=== PATIENT | female | born 1945 | race Caucasian/White ===

== ENCOUNTER 2017-11-04 07:30 | Inpatient (IN) ==
[2017-11-04] MEDS ORDERED: *HR* Heparin 5,000 UNIT/ML VIAL IVP PRN ×2 (09:00)
[2017-11-04] MEDS ORDERED: Aspirin 325 MG TABLET PO SCH ×2 (09:00→10:30)
--- NOTE | 2017-11-04 09:08 | Internal Med History&Physical ---
Date of Encounter: 11/04/17 Time of Encounter: 09:06 Assessment and Plan (1) NSTEMI (non-ST elevated myocardial infarction) Current visit: Yes Status: Acute troponin is 6. Patient is on full dose heparin drip. Continue aspirin and beta blockers. She is chest pain-free currently. Will discuss with cardiology service for possible coronary angiography (2) Constipation Current visit: Yes Status: Acute Patient has been constipated for the past 2 weeks. She had a large bowel movement yesterday. She notices improvement in her abdominal discomfort. no more nausea and vomiting. Will give the patient Colace 100 milligrams twice daily. Qualifiers: Qualified Code(s): K59.00 - Constipation, unspecified Internal Medicine - H&P: HPI Chief complaint: abdominal and chest pain History of present illness: Ms. Rivera is a 71 year old female who presented to the emergency room with the main complain of abdominal pain. Yesterday evening patient started having diffuse crampy abdominal pain associated with nausea and nonbloody nonbilious emesis. Patient mentioned that she had not had a bowel movement in 2 weeks. Shortly after this complain she started experiencing retrosternal chest pain that was initially intermittent but then became constant. Workup at outside facility shoulder a 2nd component of 6 after an initial normal troponin. Patient is currently chest pain free during my interview. CTA chest abdomen and pelvis at outside facility was unremarkable. Internal Medicine - H&P: Meds 3 Allergy/AdvReac Type Severity Reaction Status Date / Time Hydromorphone [From Dilaudid] AdvReac Hallucinati Verified 06/21/16 09:20 ng All Systems PM: A 10-system review of systems was performed and is negative for pertinent findings except as documented above in the HPI. Review of systems: 10 point review of systems is negative except for HPI - Constitutional Vitals: Temp Pulse Resp BP Pulse Ox 98.5 F 91 19 122/82 91 11/04/17 08:20 11/04/17 08:20 11/04/17 08:20 11/04/17 08:20 11/04/17 08:20 Exam: Gen.: patient is alert oriented times 3 not in distress. Cardiac: normal S1 S2 no additional sounds are murmurs. Chest: clear to auscultation. Abdomen: soft, slight tenderness to deep palpation. Lower extremity no swelling mucous membranes: moist
[2017-11-04 09:29] LABS: Hematocrit 42.9 % (35.3-44.9); Mean Corpuscular HGB Conc 32.6 g/dL (31.6-35.5); Mean Corpuscular Hemoglobin 31.5 pg (28.0-33.3); Mean Corpuscular Volume 96.4 fL (83.0-100.0); Mean Platelet Volume 11.4 fL (9.4-12.4); Platelet Count 182 K/mcL (140-400); Red Blood Count 4.45 M/mcL (3.82-4.97); Red Cell Distribution Width 12.2 % (11.5-14.5)
--- NOTE | 2017-11-04 09:34 | Cardiology Consult Note ---
Date of Encounter: 11/04/17 Time of Encounter: 09:30 Assessment and Plan (1) NSTEMI (non-ST elevated myocardial infarction) Current Visit: Yes Status: Acute Aspirin, Heparin. Load with Brilinta 180mg, BB, high intensity statin. No murmur or pulmonary edema on exam or current of injury on EKG. Continue medical therapy with plan for [facility] tomorrow morning. A/R/B of LHC discussed including 1% chance of FL//CVA/CABG/bleeding/ALEJANDRO, she is aware and agreeable with proceeding. Symptoms controlled - plan for tomorrow. 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 All questions were answered. Thank you for involving us in the care of your patient. Please call with any questions. History of Present Illness Consult date: 11/04/17 Consult reason: NSTEMI Chief complaint: constipation and chest pressure History of present illness: Ms. Rivera is a 71 year old female with no previous cardiac history presents with 2 week history of constipation at [facility], then while in ED developed severe chest pressure that has been relieved with aspirin, NTG SL, and heparin drip. At the time of worst discomfort, she had diaphoresis and dyspnea. She denies syncope. Medications and Allergies 3 Allergy/AdvReac Type Severity Reaction Status Date / Time Hydromorphone [From Dilaudid] AdvReac Hallucinati Verified 06/21/16 09:20 ng All Systems Review: A 10-system review of systems was performed and is negative for pertinent findings except as documented above in the HPI. - Constitutional Constitutional: no chills, no fever(s) - EENT Eyes: no blurred vision, no loss of vision Nose, mouth and throat: no bleeding gums, no epistaxis - Cardiovascular Cardiovascular: chest pain at rest, no dyspnea on exertion, no irregular heart rhythm - Respiratory Respiratory: no hemoptysis, no wheezing - Gastrointestinal Gastrointestinal: constipation, no hematemesis, no hematochezia - Genitourinary Genitourinary: no dysuria, no hematuria - Musculoskeletal Musculoskeletal: no arthralgias, no myalgias - Integumentary Integumentary: no erythema, no rash - Neurological Neurological: no syncope, no tingling - Psychiatric Psychiatric: no hallucinations, no panic attacks - Hematological/Lymphatic Hematologic/Lymphatic: no easy bleeding, no easy bruising Physical Examination Vital Signs, Last 4 Hours Temp Pulse Resp BP Pulse Ox 11/04/17 08:20 98.5 F 91 19 122/82 91 General: Conversant HEENT: Atraumatic Neck: No JVD Cardiac: Reg Rate and Rhythm Lungs: Normal Breath Sounds Neuro: Alert and responsive Abdomen: Soft Skin: No rashes noted on visualized skin Musculoskeletal: No Chest Wall Tenderness Extremities: No Edema Results 11/04/17 09:07 11/04/17 09:07 - EKG Interpretation EKG results cardiology: personally reviewed, sinus rhythm (Anterior FL, probably old. No current of injury) Consult Discharge Plan - Plan Referrals: Cha Delgado, SERVICE OPERATIONS MANAGER [Primary Care Provider] -
[2017-11-04 09:42] LABS: BUN/Creatinine Ratio 19 (6-26); Blood Urea Nitrogen 20 mg/dL (8-23); Calcium 9.2 mg/dL (8.6-10.3); Carbon Dioxide 25 mEq/L (23-29); Chloride 103 mEq/L (98-107); Glucose 157 mg/dL (70-105); INR 1.1; Osmolality,Calculated 288 (280-300); Potassium 3.7 mEq/L (3.5-5.1); Prothrombin Time 11.6 Seconds (9.4-12.1); Sodium 136 mEq/L (136-145); eGFR For African Americans > 60 (> 60); eGFR For Non-African Americans 52 (> 60)
[2017-11-04] MEDS: Heparin 25,000 UNIT/500 ML D5W 25,000 UNIT/500 ML BAG IVC SCH (10:02)
[2017-11-04] MEDS ORDERED: *HR* Ticagrelor 90 MG TABLET PO ONE (10:20)
[2017-11-04] MEDS ORDERED: Nitroglycerin 1 INCH/GM PACKET TP ONE (10:21)
[2017-11-04 10:30] LABS: Activated Partial Thrombo Time 142.7 Seconds (26.0-36.0)
[2017-11-04 10:49] LABS: Heparin anti-factor XA UFH 0.57 IU/mL (0.30-0.70)
[2017-11-04] MEDS ORDERED: Furosemide 20 MG TABLET PO PRN (16:06)
[2017-11-04] MEDS: *HR* Ticagrelor 90 MG TABLET PO SCH (20:16)
[2017-11-04] MEDS ORDERED: Acetaminophen 325 MG TABLET PO PRN (20:50)
[2017-11-05 00:47] LABS: Basophils % 0.1 %; Eosinophils % 0.3 %; Hematocrit 36.9 % (35.3-44.9); Hemoglobin 12.4 g/dL (11.5-15.4); Immature Granulocytes % 0.5 % (0-4); Lymphocytes # 0.8 K/mcL (0.6-4.6); Lymphocytes % 6.4 %; Mean Corpuscular HGB Conc 33.6 g/dL (31.6-35.5); Mean Corpuscular Hemoglobin 31.6 pg (28.0-33.3); Mean Corpuscular Volume 93.9 fL (83.0-100.0); Monocytes # 0.9 K/mcL (0.0-1.3); Monocytes % 7.1 %; Neutrophils # 10.6 K/mcL (1.6-8.9); Platelet Count 166 K/mcL (140-400); Red Blood Count 3.93 M/mcL (3.82-4.97); Red Cell Distribution Width 12.5 % (11.5-14.5); Segmented Neutrophils % 85.6 %
[2017-11-05 00:55] LABS: Hemoglobin A1C 4.8 %
[2017-11-05 01:01] LABS: BUN/Creatinine Ratio 18 (6-26); Blood Urea Nitrogen 18 mg/dL (8-23); Calcium 8.8 mg/dL (8.6-10.3); Carbon Dioxide 27 mEq/L (23-29); Chloride 104 mEq/L (98-107); Glucose 130 mg/dL (70-105); Magnesium 2.2 mg/dL (1.6-2.6); Osmolality,Calculated 284 (280-300); Potassium 3.7 mEq/L (3.5-5.1); Sodium 135 mEq/L (136-145); eGFR For African Americans > 60 (> 60); eGFR For Non-African Americans 53 (> 60)
[2017-11-05] MEDS: Aspirin 81 MG TAB.CHEW PO SCH (07:58)
[2017-11-05] MEDS: BuPROPion XL (24 HR) 150 MG TABLET PO SCH (07:58)
[2017-11-05] MEDS: *HR* Ticagrelor 90 MG TABLET PO SCH (07:58)
--- NOTE | 2017-11-05 08:27 | Event Note ---
Date of Encounter: 11/05/17 Time of Encounter: 08:25 - Cardiology Event Note Laboratory Tests 11/04/17 11/04/17 11/04/17 09:07 14:44 20:37 Troponin I 6.70 H* 6.17 H* 6.36 H* Active Medications Acetaminophen (Tylenol) 650 mg PO Q6HR PRN PRN Reason: Fever Stop: 05/06/18 20:51 Last Admin: 11/04/17 21:48 Dose: 650 mg Aspirin (Aspirin) 81 mg PO DAILY NAINA Stop: 05/07/18 09:01 Last Admin: 11/05/17 07:58 Dose: 81 mg Bupropion HCl (Wellbutrin Xl) 300 mg PO DAILY NAINA Stop: 05/07/18 09:01 Last Admin: 11/05/17 07:58 Dose: 300 mg Docusate Sodium (Colace) 100 mg PO BID NAINA PRN Reason: Protocol Stop: 05/06/18 09:01 Last Admin: 11/05/17 07:58 Dose: 100 mg Furosemide (Lasix) 20 mg PO DAILY PRN PRN Reason: fluid retention Stop: 05/06/18 16:07 Heparin Sodium (Porcine) (Heparin) 4,000 unit IVP Q6HR PRN PRN Reason: SEE COMMENTS Stop: 05/06/18 09:01 Heparin Sodium (Porcine) (Heparin) 2,000 unit IVP Q6H PRN PRN Reason: SEE COMMENTS Stop: 05/06/18 09:01 Heparin Sodium/Dextrose (Heparin 25,000 Unit/500 Ml D5w) 25,000 unit in 500 mls @ 20.061 mls/hr IVC .Q24H NAINA; 11.8 UNIT/KG/HR PRN Reason: Protocol Stop: 05/06/18 09:01 Last Titration: 11/05/17 02:15 Dose: 8.82 unit/kg/hr, 15 mls/hr Levothyroxine Sodium (Synthroid) 100 mcg PO DAILY NAINA Stop: 05/07/18 09:01 Last Admin: 11/05/17 07:58 Dose: 100 mcg Metoprolol Tartrate (Lopressor) 25 mg PO BID NAINA Stop: 05/06/18 21:01 Last Admin: 11/05/17 07:53 Dose: Not Given Simvastatin (Zocor) 40 mg PO QPM NAINA PRN Reason: Protocol Stop: 05/06/18 18:01 Last Admin: 11/04/17 18:00 Dose: 40 mg Ticagrelor (Brilinta) 90 mg PO BID [facility] Stop: 05/06/18 21:01 Last Admin: 11/05/17 07:58 Dose: 90 mg EF 25-30% on echo. Cardiac Rehab C/S placed. For [facility] today. CP free. All questions answered.
[2017-11-05] MEDS ORDERED: Heparin 1,000 UNITS/500 mL 500 ML ONE (10:29)
[2017-11-05] MEDS ORDERED: 0.9 % Sodium Chloride 1,000 ML ONE ×2 (10:29→11:53)
[2017-11-05] MEDS ORDERED: *HR* Heparin 10,000 UNIT/10 ML VIAL ONE (10:29)
[2017-11-05] MEDS ORDERED: Nitroglycerin 1,000 MCG/10 ML VIAL IV ONE (10:30)
--- NOTE | 2017-11-05 10:30 | Pre-Sedation Evaluation ---
Pre-sedation evaluation - Pre-sedation checklist Date of procedure: 11/05/17 Procedure: heart cath Recent Vitals: Last Vital Signs Temp 98.7 F 11/05/17 06:36 Pulse 62 11/05/17 06:36 Resp 18 11/05/17 06:36 BP 87/48 11/05/17 06:36 Pulse Ox 96 11/05/17 06:36 H&P (including ROS) documented in medical record: Yes Previous reaction to sedatives/anesthetics: Yes; explain in comment Dietary Status: NPO after Midnight Dentition: No loose teeth or bridges ASA Classification *see protocol: CLASS II-Mild systemic disease Plan of Care: Pt appropriate candidate for procedure/moderate/conscious sedation , Risks/benefits of procedure/sedation discussed w/ patient/family
[2017-11-05] MEDS ORDERED: *HR* Midazolam HCl 5 MG/5 ML VIAL IVP ONE (11:44)
[2017-11-05] MEDS ORDERED: *HR* FentaNYL (PF) 250 MCG/5 ML VIAL ONE (11:44)
[2017-11-05] MEDS ORDERED: Ondansetron 4 MG/2 ML VIAL IVP PRN (12:37)
--- NOTE | 2017-11-05 12:50 | Invasive Diagnostic Lab Proc ---
Name: Shelia Rivera Date of Study: 11/05/2017 Date: 1945 Ht: 57.1in Medical Record#: [id number] Age: 71 Wt: 194.01lb Gender: Female BSA: 1.78 Order #: [id number] BMI: 41.85 Physicians Procedure Physician: Lucius Jesus MD, FACC Referring MD: Cha Delgado CNP Referring MD: Staff Name Position Time In GómezPrince RN Monitor 11:58 AM [place] RT (R) Scrub 11:58 AM Mello George RN Stone Polisher Hand 11:58 AM Indications Indication Non-Stemi Procedures Performed Procedure L HRT ARTERY/VENTRICLE ANGIO Pre-Procedure Checklist Informed consent is complete signed and on chart. H&P is on chart. ID band is on and ID verified with patient. Patient NPO for procedure The procedure was described for the patient and questions were answered. Blood Pressure: 108/67 ECG is on chart. Rhythm: NSR Plan of Care Patient will tolerate the procedure without complications. Adequate level of comfort will be maintained. Hemodynamics will remain stable Patient will recover from procedure without complications. Respiratory function will be maintained. Cardiac rhythm will remain stable. Patient temperature will be maintained. Patient and/or family have verbalized understanding of the procedure. Patient Education Chief Complaint/Reason for Test: Cardiac Cath Developmental Category: Geriatric (65+ years) Developmentally Appropriate for Age: Yes Learning Barriers: None Education Needs: Procedure Education Method: Verbal Information Taught: Cardiac Cath Educational Evaluation: Able to repeat information Intravenous Access Time IV Size Location DC'd Fluid/Drip Rate Units RN 20g 1 11/01" Patent On Arrival Lt Antecubital 0.9NaCl 25 ml/hr Mello George RN Allergies lisinopril Hydromorphone Vital Signs Time BP (mmHg) HR (bpm) O2 Sat. RR (bpm) LOC 11:49 AM 108 / 67 63 95 % 18 5 = Fully awake and oriented or at pre-proc level 12:11 PM / % 5 = Fully awake and oriented or at pre-proc level 12:11 PM / % 4 = Oriented but drowsy 12:07 PM 164 / 146 67 95 % 12:09 PM 103 / 50 66 92 % 27 12:14 PM 103 / 50 62 96 % 28 12:19 PM 101 / 48 60 96 % 14 12:24 PM 105 / 50 61 97 % 15 12:29 PM 117 / 53 69 98 % 14 Procedural Medications Time Medication Dose Units Method Given By 12:11 PM Oxygen 4 L/min nasal cannula Mello George RN 12:11 PM Versed 2 mg Intravenous Mello George RN 12:11 PM Fentanyl 50 mcg Intravenous Mello George RN 12:20 PM Lidocaine 2% 20 ml Subcutaneous Lucius Jesus MD, [facility] ASA Classification: CLASS II- Mild systemic disease (i.e. well-controlled diabetes, hypertension, asthma, cigarette smoking) Liz Score Preprocedure Postprocedure Activity 2- Moves 4 extremities sustained head lift Activity 2- Moves 4 extremities sustained head lift Circulation 2- SBP +/= 20 points of pre-anesthetic level Circulation 2- SBP +/= 20 points of pre-anesthetic level Consciousness 2- Awake and alert oriented x 3 Consciousness 2- Awake and alert oriented x 3 O2 Saturation 2- Able to maintain O2 satruation of 92% on room air O2 Saturation 2- Able to maintain O2 satruation of 92% on room air Respiratory 2- Able to deep breathe and cough well Respiratory 2- Able to deep breathe and cough well Total Score 10 Total Score 10 Contrast Agent: Isovue Diagnostic Contrast: 73 ml Total Contrast: 73 ml Fluoro Dose: 138 mGy Procedure Log Time Note Enter By 11:48 AM CathStat 11:58 AM Pt arrived to cath lab 2 at 11:58 [facility] 11:58 AM Prince Magaña RN Position: Monitor Time in: 11:58 [facility] 11:58 AM [place] RT (R) Position: Scrub Time in: 11:58 [facility] 11:58 AM Mello George RN Position: Stone Polisher Hand Time in: 11:58 [facility] 11:58 AM Patient charges- Angio tray pack, Navilyst 3mm J, Pulse Oximetry and ACIST tubing and transducer [facility] 11:58 AM Case Delayed no, inpatient [facility] 11:58 AM Aditya paged/called 11:58. [facility] 11:58 AM Aditya responded and notified patient is ready 11:58 [facility] 12:02 PM Physician arrived 12:02 [facility] 12:02 PM Meet and greet completed [facility] 12:02 PM Sign in performed according to hospital policy. [facility] 12:02 PM Procedure start 12:02 [facility] 12:06 PM Vitals capture started with the following parameters, Patient=Adult, Interval=5 min, Initial Fnktaims=291 mmHg, Deflation Rate=5 mmHg, Cuff placed on Left Arm 12:07 PM HR=67 bpm, BZRK=495/146 mmhg, SpO2=95.0 %, Comment=nsr 12:08 PM [ Start or Stop Vital ] 12:08 PM Vitals capture stopped. 12:08 PM Vitals capture started with the following parameters, Patient=Adult, Interval=5 min, Initial Wuxcdxst=351 mmHg, Deflation Rate=5 mmHg, Cuff placed on Left Arm 12:09 PM HR=66 bpm, XDOF=331/50 mmhg, SpO2=92.0 %, Resp=27 B/min, Comment=nsr 12:11 PM Time: 12:11 Patient comfortable and pain free: Yes [facility] 12:11 PM Time: 12:11LOC: 5 = Fully awake and oriented or at pre-proc level [facility] 12:11 PM Time: 12:11 Oxygen on at 4 L/min per nasal cannula [facility] 12:11 PM Time: 12:11 Versed 2 mg Intravenous Given by Mello [facility] 12:11 PM Time: 12:11 Fentanyl 50 mcg Intravenous Given by Mello [facility] 12:12 PM ASA Class CLASS II- Mild systemic disease (i.e. well-controlled diabetes, hypertension, asthma, cigarette smoking) [facility] 12:12 PM Recorded ECG: HR=63 Condition=Condition 1 12:14 PM Pressure channel 1 zeroed. 12:14 PM HR=62 bpm, DKCN=648/50 mmhg, SpO2=96.0 %, Resp=28 B/min, Comment=nsr 12:14 PM Clinical Presentation: Non-STEMI [facility] 12:19 PM HR=60 bpm, HZEJ=099/48 mmhg, SpO2=96.0 %, Resp=14 B/min, Comment=nsr 12:20 PM Time out performed according to hospital policy [facility] 12:21 PM Time: 12:20 20 ml Lidocaine 2% to right groin Subcutaneous Given by Lucius Jesus MD, [facility] 12:24 PM Access obtained by percutaneous puncture. 5Fr 10cm Terumo [place] sheath placed in right Femoral artery. [id number] [email or web address] 12:24 PM HR=61 bpm, DTXB=102/50 mmhg, SpO2=97.0 %, Resp=15 B/min, Comment=nsr 12:25 PM 5Fr FL 4 catheter inserted over the wire DN jcallihan 12:25 PM Recorded Pressure: Ao, HR=60, Condition=Condition 1 (Aorta) Ao 85/47/63 12:25 PM LCA angiography performed in multiple views. jcallihan 12:26 PM Lesion found in Mid LAD. Pre Stenosis: 30 Pre CARLENE Flow: [email or web address] 12:26 PM Mid/Distal Left Anterior Descending Coronary Artery and diagonal branches with 30% stenosis. If graft is supplying this area, 0 % stenosis jcallihan 12:27 PM Time: 12:11LOC: 4 = Oriented but drowsy jcallihan 12:27 PM Time: 12:11 Patient comfortable and pain free: Yes jcallihan 12:27 PM Catheter removed jcallihan 12:28 PM 5Fr FR 4 catheter inserted over the wire DN jcallihan 12:28 PM RCA angiography performed in multiple views. jcallihan 12:28 PM Recorded Pressure: Ao, HR=70, Condition=Condition 1 (Aorta) Ao 91/57/73 12:28 PM Coronary Dominance: right jcallihan 12:28 PM Catheter removed jcallihan 12:29 PM HR=69 bpm, XECG=347/53 mmhg, SpO2=98.0 %, Resp=14 B/min, Comment=nsr 12:29 PM 5Fr Pigtail catheter inserted over the wire [facility] jcallihan 12:29 PM Catheter selectively placed in left ventricle jcallihan 12:30 PM Recorded Pressure: LV, HR=68, Condition=Condition 1 (Left Ventricle) LV 101/6/18 12:30 PM Bolus angiogram of left Ventricle complete: 12 ml/sec for a total of 36 mls jcallihan 12:30 PM Wire removed jcallihan 12:31 PM Recorded Pressure: LV, Ao, HR=72, Condition=Condition 1 (Left Ventricle) LV 94/9/18, (Aorta) Ao 95/43/66 12:31 PM Catheter removed jcallihan 12:31 PM Bolus angiogram of right Femoral complete: 4 ml/sec for a total of 7 mls jcallihan 12:32 PM Procedure completed at 12:32 jcallihan 12:33 PM Sign out completed: Radiation Dose 138 mGy Fluoro Time: 1.4 Isovue 370 - 200ml contrast 72 ml given by Lucius Jesus MD, FACC. Complications: NoneCardiac Rehab Consult needed: NoConfirmed administered medications: Yes jcallihan 12:33 PM Isovue 370 - 200ml,1 Bottle(s) used. jcallihan 12:33 PM Arterial sheath pulled, Mynx closure device used and was Successful [id number] S/N. jcallihan 12:33 PM Estimated Blood Loss: minimal jcallihan 12:33 PM Post ECG NSR jcallihan 12:34 PM Post Blood Pressure 117/53 jcallihan 12:34 PM 12:34 Post Pulses Bilateral DP 2+ jcallihan 12:34 PM 12:34 Post Pulses Bilateral PT 1+ jcallihan 12:34 PM Information taught Cardiac Cath and Mynx jcallihan 12:35 PM Education needs Procedure, Plan of Care, and Responsibilities of Patient in Care jcallihan 12:35 PM Learning barriers :None jcallihan 12:35 PM Education Methods Verbal jcallihan 12:35 PM Education evaluation Able to repeat information jcallihan 12:36 PM Plavix, Effient or Brilinta given No jcallihan 12:36 PM Delay to floor No jcallihan 12:36 PM Family placed in consult room. jcallihan 12:36 PM Complications: None jcallihan 12:36 PM Fluoro Time: 1.4 jcallihan 12:36 PM Isovue 370 - 200ml contrast 73 ml given by Lucius Jesus MD, FACC. jcallihan 12:37 PM Radiation Dose 138 mGy jcallihan 12:37 PM Site status No bleeding/hematoma - Rt Groin as reported by [place] RT (R) at 12:37 jcallihan 12:37 PM Opsite applied jcallihan 12:39 PM Report given to 2A RN Pt taken to 2A Room #33. 12:38 jcallihan 12:39 PM Patient out of room: 12:39 jcallihan Complications Complication None None Hemodynamics Pressures Site Systolic/A Wave Diastolic/V Wave Mean AO 85 47 63 AO 91 57 73 LV 101 6 18 LV 94 9 18 AO 95 43 66 Post Procedure Information Blood Pressure: 117/53 mmHg Rhythm: NSR Post procedural instructions were given Closure Device Time Device Success/Fail 11/05/2017 12:37:00 PM MynxGrip Successful Site Checks Time Location Status Staff Sheath In? Note 12:37 PM Rt Groin No bleeding/hematoma [place] RT (R) Pulses Time Site Pre-Procedure Post-Procedure Note 11/05/2017 11:50:00 AM Bilateral DP 2+ 11/05/2017 11:50:00 AM Bilateral PT 1+ 12:34:00 PM Bilateral DP 2+ 12:34:00 PM Bilateral PT 1+ Updated by Prince Magaña RN on 11/05/2017 12:40:07 PM electronically signed on 11/05/2017 12:44:34 PM with status of Final
--- NOTE | 2017-11-05 13:22 | Event Note ---
Date of Encounter: 11/05/17 Time of Encounter: 13:20 - Cardiology Event Note Per discussion with Dr. Jesus, no significant obstructive lesions; [place] CMP. On BB. Has allergy listed to Lisinopril. SBP noted 80's to 110's. Consider addition of ARB if able. Euvolemic in exam. On lasix. Low sodium diet, fluid restriction, and daily weight education provided. Will s/o, re-consult PRN, f/u scheduled. Will repeat echo in outpatient setting in 3 months once meds optimized to re-evaluate EF. All questions answered.
--- NOTE | 2017-11-05 13:36 | Electrocardiograph Report ---
[place] [address] Test Date: 2017-11-04 Pat Name: Shelia Rivera Department: 112 Room: 2A Gender: F Etl Architect: [facility] : 1945 Requested By: Dakota Pastrana Order Number: [id number] Reading MD: Lucius Jesus MD Measurements Intervals [place] Rate: 93 P: 60 MI: 191 QRS: 48 QRSD: 88 T: 84 QT: 340 QTc: 390 Interpretive Statements SINUS RHYTHM LOW QRS VOLTAGE IN EXTREMITY LEADS Poor R wave progression Electronically Signed On 11-05-2017 13:34:59 EST by Lucius Jesus MD
--- NOTE | 2017-11-05 17:42 | Internal Med Progress Note ---
Date of Encounter: 11/05/17 Time of Encounter: 17:40 - Assessment and plan (1) NSTEMI (non-ST elevated myocardial infarction) Current Visit: Yes Status: Acute Assessment and plan: Patient admitted with troponin of 6. Patient was started on aspirin/beta blockers. Patient was chest pain free after initial evaluation. Cardiology was the board. Patient underwent cardiac catheterization. No obstructive lesions seen. [place] CMP. Cardiology decided appropriate medication. Patient is requesting to stay overnight. patient can go home tomorrow. (2) Diabetes Current Visit: Yes Status: Acute Assessment and plan: We will follow the recommendations from subcutaneous insulin order set. Qualifiers: Diabetes mellitus type: type 2 Diabetes mellitus complication status: with circulatory complication Diabetes mellitus complication detail: with other circulatory complications Diabetes mellitus terminal press operator insulin use: unspecified terminal press operator insulin use status Qualified Code(s): E11.59 - Type 2 diabetes mellitus with other circulatory complications - Subjective Interval history: Patient seen and examined. Chart reviewed. Patient's is at bedside. Patient underwent cardiac catheterization. Patient does not have any complaints. - Constitutional Vitals: Temp Pulse Resp BP Pulse Ox 98.1 F 74 18 109/69 92 11/05/17 15:54 11/05/17 15:54 11/05/17 15:54 11/05/17 15:54 11/05/17 15:54 - Head Head exam: Present: atraumatic, normocephalic - Eye Eye exam: Present: PERRL, conjuntiva pink, sclera anicteric Pupils: Present: PERRL - Neck Neck exam general surgery: Present: supple, trachea midline. Absent: lymphadenopathy - Respiratory Respiratory exam: Present: CTAB. Absent: accessory muscle use, rales, rhonchi, wheezes - Cardiovascular Cardiovascular exam: Present: RRR, +S1, +S2. Absent: diastolic murmur, gallop, rubs, systolic murmur - GI/Abdominal GI/Abdominal exam: Present: normal bowel sounds, soft, no peritoneal signs. Absent: distended, tenderness - Extremities Exam Extremities exam: Present: warm, radial pulses palpable and symmetrical. Absent : calf tenderness, cyanotic, pedal edema - Neurological Exam Neurological exam: Present: CN II-XII intact, oriented X3, no focal deficits. Absent: pronater drift, facial droop, speech deficit - Skin Skin exam: Present: dry, intact Internal Medicine: Result - Labs CBC & Chem 7: 11/05/17 00:40 11/05/17 00:40 Labs: Short CBC 11/05/17 Range/Units 00:40 WBC 12.4 H (4.3-11.1) K/mcL Hgb 12.4 D (11.5-15.4) g/dL Hct 36.9 (35.3-44.9) % Plt Count 166 (140-400) K/mcL Neutrophils # 10.6 H (1.6-8.9) K/mcL BMP 11/05/17 00:40 Sodium 135 L Potassium 3.7 Chloride 104 Carbon Dioxide 27 BUN 18 Creatinine 1.02 Glucose 130 H Calcium 8.8 Cardiac Enzymes 11/04/17 Range/Units 20:37 Troponin I 6.36 H* (< 0.04) ng/mL - ABG Interpretation ABG results: PT/INR, D-dimer PT 11.6 Seconds (9.4-12.1) 11/04/17 09:07 Consult Discharge Plan - Plan Referrals: Cha Delgado, TRAVEL CONSULTANT [Primary Care Provider] - (web request sent on 11/05/17)
[2017-11-05] MEDS: Heparin 25,000 UNIT/500 ML D5W 25,000 UNIT/500 ML BAG IVC SCH (23:17)
[2017-11-06] MEDS: Aspirin 81 MG TAB.CHEW PO SCH (08:19)
[2017-11-06] MEDS: BuPROPion XL (24 HR) 150 MG TABLET PO SCH (08:19)
[2017-11-06 11:21] VITALS: BP 108/56
[2017-11-06] MEDS ORDERED: D5% in Water 1,000 ML IVC PRN (12:46)
[2017-11-06] MEDS ORDERED: *HR* Dextrose 50 % in Water (Syg) 50 ML SYRINGE IVP PRN (12:46)
[2017-11-06] MEDS ORDERED: Furosemide 20 MG TABLET PO SCH (12:46)
[2017-11-06] MEDS ORDERED: Dextrose Gel 15 GM/37.5 ML TUBE PO PRN ×2 (12:46)
--- NOTE | 2017-11-06 13:20 | Discharge Summary ---
Date of Encounter: 11/06/17 Time of Encounter: 13:16 - Discharge Diagnosis (1) Cardiomyopathy Priority: Primary Status: Chronic Qualifiers: Cardiomyopathy type: stress-induced Qualified Code(s): I51.81 - Takotsubo syndrome (2) Hypothyroidism Priority: Secondary Status: Chronic Qualifiers: Hypothyroidism type: unspecified Qualified Code(s): E03.9 - Hypothyroidism , unspecified - Discharge Medications Prescriptions: Aspirin 81 mg PO DAILY #30 tab.chew Metoprolol [Lopressor] 25 mg PO BID #60 tablet Home Medications: Biotin [Noman Biotin] 1 mcg PO DAILY 11/04/17 [History] BuPROPion XL (24 HR) [Wellbutrin Xl] 300 mg PO DAILY 11/04/17 [History] Fesoterodine Fumarate [Toviaz] 8 mg PO DAILY 11/04/17 [History] Levothyroxine Sodium [Levoxyl] 100 mcg PO DAILY 11/04/17 [History] Primidone [Mysoline] 50 mg PO DAILY 11/04/17 [History] Simvastatin [Zocor] 40 mg PO QPM 11/04/17 [History] Vitamin B-12 5,000 unit PO DAILY 11/04/17 [History] Aspirin 81 mg PO DAILY #30 tab.chew 11/06/17 [Rx] Furosemide [Lasix] 20 mg PO DAILY #30 11/06/17 [Rx] Metoprolol [Lopressor] 25 mg PO BID #60 tablet 11/06/17 [Rx] Ascorbate Calcium [Vitamin C] 500 mg PO DAILY 11/09/17 [History] Cholecalciferol (Vitamin D3) [Vitamin D3] 2,000 unit PO DAILY 11/09/17 [History] Oxycodone HCl/Acetaminophen [Percocet 5-325 mg Tablet] 1 each PO Q6H PRN [History] Potassium Chloride 10 meq PO DAILY #30 tab.er.prt 11/09/17 [Rx] Resveratrol/Quercetin [Resveratrol Plus 100 mg Tablet] 1 each PO DAILY 11/09/17 [History] Turmeric Root Extract [Turmeric] 500 mg PO DAILY 11/09/17 [History] Allergies/Adverse Reactions: 3 Allergy/AdvReac Type Severity Reaction Status Date / Time Hydromorphone [From Dilaudid] AdvReac Hallucinati Verified 06/21/16 09:20 ng lisinopril AdvReac Cough Verified 11/04/17 13:34 Procedures/tests Complete & Pending: Procedures Performed prior 72 hours Category Date Time Status Left Heart Cath [CL Cardiac Catheterization] [CL] General Scrap Worker 11/04/17 09:32 Completed Routine ECG 12 lead ECG [ECG] Routine Y 11/04/17 09:29 Completed EV echocardiogram Routine Y 11/04/17 08:58 Completed Date of admission: 11/04/17 08:58 Primary care physician: Cha Delgado CNP Consults: 11/04/17 08:58 Consult to Cardiology [CONS] Routine Comment: Consulting Provider: Cardiology Jacqueline Reason for Consult: NSTEMI Call Completed: Yes 11/05/17 08:24 Consult to Cardiac Rehabilitation-Phase1 [CONS] Routine Comment: Reason for Consult: NSTEMI Call Completed: No Discharging clinician: Mecca Sewell Anticipated date of discharge: 11/06/17 - Patient Status Disposition: Home, Self-Care Condition: Fair Functional capacity at discharge: independent ambulation Overall status at discharge: patient is progressing back to baseline - Discharge Instructions Instructions: Metoprolol (By mouth), Myocardial Infarction (DC) Follow Up With: Cha Delgado CNP [Primary Care Provider] - (web request sent on 11/05/17) Additional Instructions: F/up with PCP in 1-2 weeks F/up with Cardiology in 2-3 weeks - Diet and Activity Activity: resume usual activities as tolerated Diet: low fat, low cholesterol, low salt diet Hospital course: Ms. Rivera is a 71 year old female with the above medical problems who was admitted with chest pain. Patient was noted to have significantly elevated troponins with no ischemic changes on EKG. She was initially started on non-ST elevation PR protocol with IV heparin drip, aspirin, statin. Cardiology was consulted and patient underwent left heart catheterization, which showed no obstructive lesions. Echocardiogram showed severely reduced ejection fraction around 30-35%, suggestive of stress-induced cardiomyopathy. Anticoagulation was discontinued and patient was started on beta magalie and continued on diuretics, aspirin and statin. She is currently medically stable for discharge, with outpatient cardiology follow-up. - Time Spent with Patient Total time spent providing and/or coordinating discharge services: Greater than 30 minutes (40 min) - Constitutional Vitals: Temp Pulse Resp BP Pulse Ox 98.0 F 58 17 108/56 94 11/06/17 11:18 11/06/17 11:18 11/06/17 11:18 11/06/17 11:18 11/06/17 11:18 General appearance: Present: A&O X 3, answers questions appropriately - Respiratory Respiratory exam: Present: CTAB. Absent: accessory muscle use, rales, rhonchi, wheezes - Cardiovascular Cardiovascular exam: Present: RRR, +S1, +S2. Absent: diastolic murmur, gallop, rubs, systolic murmur
[2017-11-06] MEDS ORDERED: Insulin LISPRO 300 UNITS/3 ML VIAL SQ SCH ×2 (16:30→21:00)
== END 2017-11-06 14:12 | disposition home or self-care (01) | DRG 287 ==
LOC: 2ANU → SUATTDRO 08:58
PROVIDERS: ADMIT Internal Medicine; ATTEND Internal Medicine

== ENCOUNTER 2017-11-08 19:34 | Observation (INO) ==
[2017-11-08 20:57] LABS: Basophils % 0.4 %; Eosinophils # 0.1 K/mcL (0.0-0.6); Eosinophils % 1.9 %; Hematocrit 37.4 % (35.3-44.9); Hemoglobin 12.1 g/dL (11.5-15.4); Immature Granulocytes % 0.8 % (0-4); Lymphocytes # 1.2 K/mcL (0.6-4.6); Lymphocytes % 15.7 %; Mean Corpuscular HGB Conc 32.4 g/dL (31.6-35.5); Mean Corpuscular Volume 95.9 fL (83.0-100.0); Mean Platelet Volume 11.8 fL (9.4-12.4); Monocytes # 0.7 K/mcL (0.0-1.3); Neutrophils # 5.4 K/mcL (1.6-8.9); Platelet Count 186 K/mcL (140-400); Red Cell Distribution Width 12.6 % (11.5-14.5); Segmented Neutrophils % 72.2 %
[2017-11-08 21:42] LABS: BUN/Creatinine Ratio 20 (6-26); Blood Urea Nitrogen 21 mg/dL (8-23); Calcium 9.4 mg/dL (8.6-10.3); Carbon Dioxide 27 mEq/L (23-29); Chloride 105 mEq/L (98-107); Glucose 93 mg/dL (70-105); Osmolality,Calculated 287 (280-300); Potassium 3.9 mEq/L (3.5-5.1); Sodium 137 mEq/L (136-145); eGFR For African Americans > 60 (> 60); eGFR For Non-African Americans 53 (> 60)
[2017-11-09] MEDS ORDERED: Furosemide 40 MG/4 ML VIAL IVP ONE (01:22)
--- NOTE | 2017-11-09 01:25 | Emergency Department Note ---
Disposition Clinical Impression: CHF exacerbation Qualifiers: Congestive heart failure type: unspecified Qualified Code(s): I50.9 - Heart failure, unspecified Disposition: Admitted As Inpatient Condition: Good SOB HPI - General Chief Complaint: ED Shortness of Breath/Dyspnea Stated Complaint: yeny Time Seen by Provider: 11/08/17 21:29 Source: patient Limitations: no limitations Nursing Notes Reviewed: Yes Vital Signs Reviewed: Yes - History of Present Illness Patient presents for evaluation of shortness of breath. Patient has been having increasing shortness of breath since she was recently diagnosed with an NSTEMI cardiomyopathy with an ejection fraction less than 30%. Patient presents with increasing shortness of breath. Worse with exertion. Associated cough that is dry and nonproductive. Currently requiring 2 L nasal cannula to keep her pulse ox at 94-95%. Patient will further be evaluated for likely CHF. - Related Data Home Medications Medication Instructions Recorded Confirmed Biotin [Noman Biotin] 11/04/17 BuPROPion XL (24 HR) [Wellbutrin 300 mg PO DAILY 11/04/17 11/04/17 Xl] Fesoterodine Fumarate [Toviaz] 11/04/17 11/04/17 Fesoterodine Fumarate [Toviaz] 4 mg PO DAILY 11/04/17 11/04/17 Levothyroxine Sodium [Levoxyl] 100 mcg PO DAILY 11/04/17 11/04/17 Primidone 11/04/17 11/04/17 Primidone [Mysoline] 50 mg PO DAILY 11/04/17 11/04/17 Simvastatin [Zocor] 40 mg PO QPM 11/04/17 11/04/17 Vitamin B-12 11/04/17 Previous Rx's Medication Instructions Recorded Aspirin 81 mg PO DAILY #30 tab.chew 11/06/17 Furosemide [Lasix] 20 mg PO DAILY #30 11/06/17 Metoprolol [Lopressor] 25 mg PO BID #60 tablet 11/06/17 Allergies Allergy/AdvReac Type Severity Reaction Status Date / Time Hydromorphone [From Dilaudid] AdvReac Hallucinati Verified 06/21/16 09:20 ng lisinopril AdvReac Cough Verified 11/04/17 13:34 Review of Systems: CONSTITUTIONAL: No weight loss, fever, chills, weakness or fatigue. HEENT: Eyes: No visual changes. Ears, Nose, Throat: No hearing loss, difficulty talking or unable to swallow. SKIN: No rash or itching. CARDIOVASCULAR: No chest pain, chest pressure or chest discomfort. No palpitations or edema. RESPIRATORY: Shortness of breath GASTROINTESTINAL: No anorexia, nausea, vomiting or diarrhea. No abdominal pain or blood. GENITOURINARY: No burning on urination or hematuria. NEUROLOGICAL: No headache, dizziness, syncope, paralysis, ataxia, numbness or tingling in the extremities. No change in bowel or bladder control. MUSCULOSKELETAL: No muscle pain, back pain, joint pain or stiffness. Past Medical History - Past Medical History Medical history: Reports: CHF, hypertension Psychiatric history: Reports: no psych history - Social History Smoking Status: Never smoker Smokeless Tobacco Status: No Alcohol use: Reports: none Drug use: Reports: none Physical Exam General: Well appearing, nontoxic, no acute distress Head: Normocephalic Atraumatic Eyes: PERRL, EOMI ENT: Airway patent, no stridor Neck: supple, no meningismus Chest: Mild rales bilaterally Cardiac: Regular rate and rhythm, no murmurs, rubs or gallops Abdomen: soft, nontender, nondistended; no guarding, rebound, or tenderness to percussion Musculoskeletal: Mild edema to the lower extremities, right leg edema worse than the left which the patient states is chronic., nontender, no palpable cord Skin: No rash, normal skin tone Neuro: Alert and Oriented to person, place, and time; No focal deficit, CN 2-12 symmetric and intact - General Limitations: no limitations General appearance: alert, in no apparent distress Course - Reevaluation(s) Reevaluation #1: Patient's blood work shows an elevated BNP and concern for CHF on chest x-ray. Patient has not had fevers or chills or productive cough. Pneumonia less likely. Lasix given. Patient will be admitted for further management. Hypoxic requiring 2 L of oxygen with no home oxygen at home. - Consultations Consultation #1: Discussed with Dr. Ac. Patient accepted for admission. Vital Signs Temperature 98.2 F 11/08/17 19:54 Pulse Rate 69 11/08/17 19:54 Respiratory Rate 18 11/08/17 19:54 Blood Pressure 150/117 11/08/17 19:54 O2 Sat by Pulse Oximetry 96 11/08/17 19:54 Temperature 98.2 F 11/08/17 19:54 Pulse Rate 56 11/09/17 01:11 Respiratory Rate 18 11/09/17 01:11 Blood Pressure 140/75 11/09/17 01:11 O2 Sat by Pulse Oximetry 96 11/09/17 01:11 Oxygen Delivery Oxygen Delivery Nasal Cannula Shortness of Breath/Dyspnea - Medical Records Medical records reviewed: Yes I reviewed the patient's medical records. - Lab Data Lab results reviewed: Yes I reviewed the patient's lab results. Result diagrams: 11/08/17 20:42 11/08/17 20:42 Lab Results 11/08/17 11/08/17 11/08/17 Range/Units 20:42 20:42 20:42 WBC 7.4 (4.3-11.1) K/mcL RBC 3.90 (3.82-4.97) M/mcL Hgb 12.1 (11.5-15.4) g/dL Hct 37.4 (35.3-44.9) % MCV 95.9 (83.0-100.0) fL MCH 31.0 (28.0-33.3) pg MCHC 32.4 (31.6-35.5) g/dL RDW 12.6 (11.5-14.5) % Plt Count 186 (140-400) K/mcL MPV 11.8 (9.4-12.4) fL Immature Gran % 0.8 (0-4) % Seg Neutrophils % 72.2 % Lymphocytes % 15.7 % Monocytes % 9.0 % Eosinophils % 1.9 % Basophils % 0.4 % Neutrophils # 5.4 (1.6-8.9) K/mcL Lymphocytes # 1.2 (0.6-4.6) K/mcL Monocytes # 0.7 (0.0-1.3) K/mcL Eosinophils # 0.1 (0.0-0.6) K/mcL Basophils # 0.0 (0.0-0.2) K/mcL Sodium 137 (136-145) mEq/L Potassium 3.9 (3.5-5.1) mEq/L Chloride 105 (98-107) mEq/L Carbon Dioxide 27 (23-29) mEq/L BUN 21 (8-23) mg/dL Creatinine 1.03 (0.60-1.20) mg/dL Est GFR ( Amer) > 60 (> 60) Est GFR (Non-Af Amer) 53 L (> 60) BUN/Creatinine Ratio 20 (6-26) Glucose 93 (70-105) mg/dL Calculated Osmolality 287 (280-300) Lactic Acid 0.8 (0.5-2.2) mmol/L Calcium 9.4 (8.6-10.3) mg/dL Troponin I (< 0.04) ng/mL B-Natriuretic Peptide (Less than 100) pg/mL 11/08/17 11/08/17 Range/Units 20:42 20:42 WBC (4.3-11.1) K/mcL RBC (3.82-4.97) M/mcL Hgb (11.5-15.4) g/dL Hct (35.3-44.9) % MCV (83.0-100.0) fL MCH (28.0-33.3) pg MCHC (31.6-35.5) g/dL RDW (11.5-14.5) % Plt Count (140-400) K/mcL MPV (9.4-12.4) fL Immature Gran % (0-4) % Seg Neutrophils % % Lymphocytes % % Monocytes % % Eosinophils % % Basophils % % Neutrophils # (1.6-8.9) K/mcL Lymphocytes # (0.6-4.6) K/mcL Monocytes # (0.0-1.3) K/mcL Eosinophils # (0.0-0.6) K/mcL Basophils # (0.0-0.2) K/mcL Sodium (136-145) mEq/L Potassium (3.5-5.1) mEq/L Chloride (98-107) mEq/L Carbon Dioxide (23-29) mEq/L BUN (8-23) mg/dL Creatinine (0.60-1.20) mg/dL Est GFR ( Amer) (> 60) Est GFR (Non-Af Amer) (> 60) BUN/Creatinine Ratio (6-26) Glucose (70-105) mg/dL Calculated Osmolality (280-300) Lactic Acid (0.5-2.2) mmol/L Calcium (8.6-10.3) mg/dL Troponin I 0.55 H* (< 0.04) ng/mL B-Natriuretic Peptide 867 H (Less than 100) pg/mL - Radiology Data Radiology results reviewed: Yes I reviewed the patient's radiology results. - EKG Data EKG attestation: Yes I reviewed and interpreted this EKG. EKG results narrative: Ventricular rate of 68. TX interval 173. QRS 85. QTC 415. Sinus rhythm with low voltage. No previous EKG at this time for comparison. Attestation Statement - Attestation Attestation: I examined this patient and my medical decision-making was reviewed with the Resident Physician, Dr. Edward. I agree with the documented findings, disposition and treatment plan as described except to the extent set forth below. Patient is a 71-year-old elderly white female who was recently admitted for non- STEMI and cardiomyopathy resulting EF of 30%. Patient returns tonight with gradually worsening shortness of breath and lower extremity edema. Patient was mildly hypoxic on room air, placed on nasal cannula oxygen and normally is not on oxygen at home. Patient denies any fevers or chills, no upper respiratory symptoms sore throat or cough, denies any chest pain pressure or heaviness, no diaphoresis, no abdominal pain or back pain. I agree with the patient's physical exam findings as documented. Patient's EKG is normal sinus rhythm with low voltage across all leads, showing poor R-wave progression across the anterior leads but no acute ischemia. Patient IV saline while established, labs were drawn and sent, portal chest x- ray was obtained. Patient with elevated troponin but significantly improving from recent hospital admission for non-STEMI. Patient with elevated B LAP REGULATOR and chest x-ray showing acute exacerbation of CHF. Patient will be given Lasix. Pneumonia less likely considering her normal white count and no suspicious clinical symptoms. Patient will be admitted for further evaluation and management.
[2017-11-09] MEDS ORDERED: *HR* OxyCODONE/APAP 5/325 TABLET PO ONE (01:53)
[2017-11-09] MEDS ORDERED: Naloxone 0.4 MG/ML INJ IVP PRN (07:58)
[2017-11-09] MEDS ORDERED: Acetaminophen 325 MG TABLET PO PRN (07:58)
[2017-11-09] MEDS ORDERED: *HR* OxyCODONE/APAP 5/325 TABLET PO PRN (08:00)
--- NOTE | 2017-11-09 08:15 | Internal Med History&Physical ---
Date of Encounter: 11/09/17 Time of Encounter: 08:04 Assessment and Plan (1) CHF exacerbation Current visit: Yes Status: Acute 71/female Admitted with worsening shortness of breath. Noted to have a possible cardiomyopathy with ejection fraction 30%. Elevated JVP, bibasal crepitations right more than left, S3 present. Noncompliance with diuretics. Plan: Admit as observation. Intravenous Lasix 20 mg twice a day. Close monitoring of electrolytes Of note: Patient does not have fever, cough with mucopurulent expectoration, sick contacts, normal white blood cell count and blood pressure is normal: This patient does not Appert to have a pneumonia. This is an exacerbation of CHF secondary to the noncompliance with the medication. Qualifiers: Congestive heart failure type: systolic Qualified Code(s): I50.23 - Acute on chronic systolic (congestive) heart failure (2) NSTEMI (non-ST elevated myocardial infarction) Current visit: No Status: Acute Patient is an elevated troponin of 0.55 that please note that in less than 4 days back patient's troponin was 6. The reason for elevated troponin is likely nonischemic cardiomyopathy. (3) Diabetes Current visit: No Status: Chronic Management of diabetes as per blood sugar. Qualifiers: Diabetes mellitus type: type 2 Diabetes mellitus complication status: with unspecified complications Diabetes mellitus fci insulin use: without stacker attendant use Qualified Code(s): E11.8 - Type 2 diabetes mellitus with unspecified complications (4) Hypothyroidism Current visit: No Status: Chronic Restart home medication Qualifiers: Hypothyroidism type: unspecified Qualified Code(s): E03.9 - Hypothyroidism , unspecified (5) Cardiomyopathy Current visit: No Status: Chronic Patient does have stress-induced cardiomyopathy. Her ejection fraction is 30%. We will restart her home medication. We will give her intravenous Lasix. Qualifiers: Cardiomyopathy type: stress-induced Qualified Code(s): I51.81 - Takotsubo syndrome Internal Medicine - H&P: HPI Chief complaint: difficulty in breathing Admitted From: Emergency Dept Plans for Post Hospital Care: Home History of present illness: PCP: MADISON Delgado Brief PMH: Systolic CHF, Takatsubo CMP, EF: 30%, HTN, DM HPI: This patient was essentially admitted for a chest pain. She was transferred from nearby [facility] to this hospital with chest pain and elevated troponin. At that time her troponin was 6 and she underwent cardiac catheterization and found to have a nonobstructive cardiomyopathy with ejection fraction of 30%. She found to have Takatsubo Cardiomyopathy. Patient was evaluated by cardiology and sent her home with the treatment for systolic congestive heart failure. Patient was sent home with medication worth supply of a 1 week and she had a mail in medication order form [facility]. It seems that patient's was informed that last 6 makes her dehydrated and that was the reason she stopped taking Lasix when she went home and she was short of breath for the past 24 hours. Her shortness of breath was getting progressively worsened and she decided to come to the emergency room for further evaluation. Workup in the emergency room: Patient was evaluated in the emergency room. X- ray was done. It was suggestive of a atelectasis/pneumonia. Patient was hospitalized for further evaluation. Reason for admission: Worsening congestive heart failure secondary to noncompliance with the treatment. Family history: Noncontributory Past Med Surg Social Fam HX - Past Medical History Medical history: CHF, diabetes, hypertension, myocardial infarction, thyroid disease Psychiatric history: no psych history - Social History Smoking Status: Never smoker Smokeless Tobacco Status: No Alcohol use: none Drug use: none - Family History Mother Living Status: Age at : 83 Cause of : CA Hx Family Cardiac Disorders: Yes Father Age at : 65 Cause of : CA Hx Family Cardiac Disorders: Yes Internal Medicine - H&P: Meds Biotin [Noman Biotin] 1 mcg PO DAILY 11/04/17 [History] BuPROPion XL (24 HR) [Wellbutrin Xl] 300 mg PO DAILY 11/04/17 [History] Fesoterodine Fumarate [Toviaz] 8 mg PO DAILY 11/04/17 [History] Levothyroxine Sodium [Levoxyl] 100 mcg PO DAILY 11/04/17 [History] Primidone [Mysoline] 50 mg PO DAILY 11/04/17 [History] Simvastatin [Zocor] 40 mg PO QPM 11/04/17 [History] Vitamin B-12 5,000 unit PO DAILY 11/04/17 [History] Aspirin 81 mg PO DAILY #30 tab.chew 11/06/17 [Rx] Furosemide [Lasix] 20 mg PO DAILY #30 11/06/17 [Rx] Metoprolol [Lopressor] 25 mg PO BID #60 tablet 11/06/17 [Rx] Ascorbate Calcium [Vitamin C] 500 mg PO DAILY 11/09/17 [History] Cholecalciferol (Vitamin D3) [Vitamin D] 2,000 unit PO DAILY 11/09/17 [History] Oxycodone HCl/Acetaminophen [Percocet 5-325 mg Tablet] 1 each PO Q6H PRN [History] Resveratrol/Quercetin [Resveratrol Plus 100 mg Tablet] 1 each PO DAILY 11/09/17 [History] Turmeric Root Extract [Turmeric] 500 mg PO DAILY 11/09/17 [History] 3 Allergy/AdvReac Type Severity Reaction Status Date / Time Hydromorphone [From Dilaudid] AdvReac Hallucinati Verified 06/21/16 09:20 ng lisinopril AdvReac Cough Verified 11/04/17 13:34 All Systems PM: A 10-system review of systems was performed and is negative for pertinent findings except as documented above in the HPI. - Constitutional Constitutional: no chills, no fever(s), no night sweats - EENT Eyes: no change in vision, no discharge, no pain, no photophobia Ears: no ear discharge, no ear pain, no tinnitus Nose, mouth and throat: no dysphagia, no nasal discharge, no neck pain, no sore throat - Cardiovascular Cardiovascular ROS IM: diaphoresis, no chest pain, no dyspnea, no lightheadedness, no palpitations, no syncope - Respiratory Respiratory: cough, dyspnea, excessive phlegm production, no wheezing - Gastrointestinal Gastrointestinal: no abdominal pain, no diarrhea, no hematemesis, no hematochezia, no melena, no nausea, no vomiting - Genitourinary Genitourinary: no change in urinary stream, no dysuria, no flank pain, no hematuria - Musculoskeletal Musculoskeletal ROS IM: no numbness, no tingling - Integumentary Integumentary IM: no rash, no unusual bruising - Neurological Neurological ROS: no confusion, no convulsions, no focal weakness, no numbness, no tingling, no tremor(s) - Hematologic/Lymphatic Hematologic/Lymphatic: no easy bruising - Constitutional Vitals: Temp Pulse Resp BP Pulse Ox 97.9 F 63 15 103/56 94 11/09/17 07:13 11/09/17 07:13 11/09/17 07:13 11/09/17 07:13 11/09/17 07:13 General appearance: Present: A&O X 3, pleasant, no acute distress, answers questions appropriately - Head Head exam: Present: atraumatic, normocephalic - Eye Eye exam: Present: PERRL, conjuntiva pink, sclera anicteric Pupils: Present: PERRL - Neck Neck exam general surgery: Present: supple, trachea midline. Absent: lymphadenopathy - Respiratory Respiratory exam: Present: CTAB, rales. Absent: accessory muscle use, rhonchi, wheezes - Cardiovascular Cardiovascular exam: Present: RRR, +S1, +S2. Absent: diastolic murmur, gallop, rubs, systolic murmur - GI/Abdominal GI/Abdominal exam: Present: normal bowel sounds, soft, no peritoneal signs. Absent: distended, tenderness - Extremities Exam Extremities exam: Present: warm, radial pulses palpable and symmetrical. Absent : calf tenderness, cyanotic, pedal edema - Neurological Exam Neurological exam: Present: CN II-XII intact, oriented X3, no focal deficits. Absent: pronater drift, facial droop, speech deficit - Skin Skin exam: Present: dry, intact Internal Med - H&P Results - Labs CBC & Chem 7: 11/08/17 20:42 11/08/17 20:42
[2017-11-09] MEDS ORDERED: Furosemide 20 MG/2 ML VIAL IVP ONE (08:19)
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
[2017-11-09] MEDS ORDERED: Cyanocobalamin (B-12) 1,000 MCG TABLET PO SCH (09:00)
[2017-11-09] MEDS ORDERED: Aspirin 81 MG TAB.CHEW PO SCH (09:00)
[2017-11-09] MEDS ORDERED: (Turmeric Root Extract [Turmeric] 500 MG) PO SCH (09:00)
[2017-11-09] MEDS ORDERED: QUERCETIN PO SCH (09:00)
[2017-11-09] MEDS ORDERED: Primidone 50 MG TABLET PO SCH (09:00)
[2017-11-09] MEDS ORDERED: RESVERATROL PO SCH (09:00)
[2017-11-09] MEDS ORDERED: Ascorbic Acid 500 MG TABLET PO SCH (09:00)
[2017-11-09] MEDS ORDERED: Cholecalciferol (D-3) 1,000 UNIT TABLET PO SCH (09:00)
[2017-11-09] MEDS ORDERED: BuPROPion XL (24 HR) 150 MG TABLET PO SCH (09:00)
[2017-11-09] MEDS ORDERED: Furosemide 20 MG TABLET PO SCH (09:00)
[2017-11-09] MEDS ORDERED: BIOTIN PO SCH (09:00)
[2017-11-09 11:57] VITALS: BP 104/62
--- NOTE | 2017-11-12 15:51 | Electrocardiograph Report ---
[address] [place] [address] Test Date: 2017-11-08 Pat Name: Shelia Rivera Department: 104 Room: 3B Gender: F [employer]: : [id number] Requested By: Ashley Soriano Order Number: [id number] Reading MD: Ana Pascual Measurements Intervals [place] Rate: 68 P: 73 MT: 173 QRS: -41 QRSD: 85 T: 48 QT: 398 QTc: 415 Interpretive Statements SINUS RHYTHM LEFT AXIS DEVIATION LOW QRS VOLTAGE IN PRECORDIAL LEADS ANTEROSEPTAL MYOCARDIAL INFARCTION, PROBABLY OLD Electronically Signed On 11-12-2017 15:50:21 EST by Ana Pascual
== END 2017-11-09 13:26 | disposition home or self-care (01) ==
LOC: 3BNU 19:34 → EMEROO 19:34 → 3BNU 11-09 02:32
PROVIDERS: ADMIT Internal Medicine; ATTEND Registered Nurse